=== PATIENT | male | born 1990 | race Asian ===

== ENCOUNTER 2016-09-21 16:58 | Emergency (ER) | payer OTHER ==
[~2016-09-21] VITALS: Ht 177.8 cm; Wt 79.4 kg
[2016-09-21 17:17] VITALS: BP_SYST 122
[2016-09-21] MEDS ORDERED: DIPH-TET-PERTUS Vaccine 0.5 ML VIAL (ADACEL) IM ONE (17:45)
[2016-09-21] MEDS ORDERED: BACITRACIN 1 GM OINT TP ONE (17:45)
[2016-09-21 18:07] VITALS: BP_SYST 122
== END 2016-09-21 18:07 | disposition home or self-care (01) ==
LOC: SED 16:58
DX: S01.112A Laceration without foreign body of left eyelid and periocular area, initial encounter (principal); W01.110A Fall on same level from slipping, tripping and stumbling with subsequent striking against sharp glass, initial encounter; Y93.89 Activity, other specified; Y92.89 Other specified places as the place of occurrence of the external cause; Y99.8 Other external cause status
CPT/HCPCS: 90715; 99283